=== PATIENT | male | born 1940 | race Caucasian/White ===

== ENCOUNTER 2016-03-24 05:09 | Day surgery (SDC) | payer MEDICARE ==
[2016-03-23 11:41] LABS: HEMATOCRIT 40.8 % (42.0-54.0); HEMOGLOBIN 13.7 g/dL (13.5-17.5); MCH 32.8 pg (26.0-34.0); MCHC 33.6 g/dL (31.0-37.0); MCV 97.6 fL (80.0-100.0); RBC 4.18 10x6/uL (4.20-6.10); WBC 7.1 10x3/uL (4.8-10.8)
[~2016-03-24] VITALS: Ht 177.8 cm; Wt 79.4 kg
[~2016-03-24 05:09] MED LIST: ASMANEX0.24 GM INH
[2016-03-24 05:45] VITALS: BP 132/67; Ht 177.8 cm; Wt 79.4 kg
[2016-03-24] MEDS ORDERED: HYDROCODONE-APA1 TAB PO (07:54)
--- NOTE | 2016-03-24 09:37 | NUR ---
IV DC WITH CATHER TIP INTACT
--- NOTE | 2016-03-30 08:25 | OP ---
PATIENT NAME: DOLORES ULRICH MEDICAL RECORD: [id number] :44 LOCATION:[facility] ADMISSION DATE: SURGEON: DENNYS MARTÍNEZ MD DATE OF OPERATION: 03/24/2016 PREOPERATIVE DIAGNOSES: Right knee medial meniscus tear and right knee lateral subchondral fracture. POSTOPERATIVE DIAGNOSES: Right knee medial meniscus tear and right knee lateral subchondral fracture. PROCEDURE PERFORMED: Right knee arthroscopy with partial lateral meniscectomy. 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 SURGEON: Daniel Martínez MD ANESTHESIA: General with a block for postop pain. CONDITION: He tolerated the procedure well, was transferred to the recovery room in stable condition at termination of the procedure. INDICATIONS: This is a 75-year-old very active gentleman that has been having some continued knee pain. He wanted to go ahead and try anything he could to continue activity and to decrease his pain. We discussed risks, benefits, and alternatives. He understood and wished to proceed. OPERATIVE REPORT: The patient was taken to the operating room and placed in supine position. General anesthesia was obtained. His right knee was confirmed to be the correct knee. It was prepped and draped in normal fashion. Procedure was begun by marking out portal sites and injecting them with 0.25% Marcaine with epinephrine. Scope was placed anterolaterally and the outflow superomedially. I check the patellofemoral joint and there were no significant lesions. 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 I did establish an anterior medial portal under direct visualization. The posterior medial meniscus was debrided with a biter and the shaver. Chondral lesions were debrided with a shaver. I then moved to the notch, the ACL and PCL were notably intact. Placing in a [id number] position, the lateral meniscus looked good as did the lateral tibial plateau and the surface of the lateral femoral condyle. Once this was accomplished, I then went ahead and placed a trocar in the area of the subchondral fracture or lesion on the lateral tibial plateau. A trocar was placed in this with end filling portal. The AccuFill was then constituted at the back table, then filled with about 35 cc of AccuFill into this lesion. This was noted on the x-ray C-arm pictures. I then also went back into the knee with the scope and verified that there was no blow through of this into the joint. Once this was accomplished and the time had for this to set up and the trocar was pulled, these portal sites were closed with 3-0 Prolene. He was awakened and transferred to recovery in stable condition, having tolerated the procedure well. TRANSINT:[id number] Voice Confirmation ID: [id number] DOCUMENT ID: [id number] OPERATIVE REPORT [id number] DOLORES ULRICH, DENNYS RODRIGUEZ MD at 0825 CC: [id number] DICTATION DATE: 03/24/16 0759 BALLISTIC TECHNICIAN: 03/24/16 1032 [facility] 03/24/16 [id number] [place] [address]
== END 2016-03-24 09:20 | disposition home or self-care (01) ==
LOC: D.OPS 05:09
PROVIDERS: Anesthesiology
DX: S83.241A Other tear of medial meniscus, current injury, right knee, initial encounter (principal); S72.431A Displaced fracture of medial condyle of right femur, initial encounter for closed fracture

== ENCOUNTER 2016-03-26 17:15 | Emergency (ER) | payer MEDICARE ==
[2016-03-24 05:45] VITALS: BMI 25.1
[~2016-03-26 17:15] MED LIST changes: +HYDROCODONE-APA1 TAB PO
[2016-03-26 19:04] LABS: APPEARANCE CLEAR (CLEAR); BACTERIA FEW /hpf (NONE SEEN); BILIRUBIN NEGATIVE (NEGATIVE); COLOR YELLOW (YELLOW); EPITHELIAL CELLS OCC /hpf (0-5); GLUCOSE NEGATIVE (NEGATIVE); KETONE NEGATIVE (NEGATIVE); LEUKOCYTE ESTERASE NEGATIVE (NEGATIVE); NITRITE NEGATIVE (NEGATIVE); PROTEIN NEGATIVE (NEGATIVE); RED CELLS - URINE 0-5 /hpf (0-5); UROBILINOGEN NORMAL (NORMAL); WHITE CELLS - URINE 0-5 /hpf (0-5)
== END 2016-03-26 21:10 | disposition home or self-care (01) ==
LOC: D.ER 17:15
PROVIDERS: Emergency Medicine
DX: R33.9 Retention of urine, unspecified (principal); K59.00 Constipation, unspecified; R05 Cough